=== PATIENT | female | born 1965 | race American Indian/Alaskan Native ===

== ENCOUNTER 2022-04-10 23:32 | Inpatient (IN) | payer MEDICAID ==
[~2022-04-10] VITALS: Ht 157.5 cm; Wt 40.3 kg
[2022-04-10] MEDS ORDERED: ROCURONIUM 10MG/ML 10ML VIAL IV ONE (23:42)
[2022-04-10] MEDS ORDERED: PROPOFOL 100 ML IV ONE (23:42)
[2022-04-10] MEDS ORDERED: ETOMIDATE (2MG/ML) 20ML VIAL IV ONE (23:42)
[2022-04-10] MEDS ORDERED: MIDAZOLAM HCL 5 MG/ML-1ML VIAL ONE (23:44)
[2022-04-11] VITALS (88 sets, daily range): BP systolic 85–124; BP diastolic 59–82
[2022-04-11] MEDS ORDERED: methylPREDNISolone SOD SUCC 125 MG/2 ML VL IV ONE
[2022-04-11 00:06] LABS: Basophils # (auto) 0.3 10 ^3/uL (0-0.2); Basophils % (auto) 2.8 % (0.0-2.0); Eosinophils # (auto) 0.6 10 ^3/uL (0-0.8); Hematocrit 31.9 % (36.0-46.0); Lymphocytes # (auto) 3.2 10 ^3/uL (0.4-5.4); Lymphocytes % (auto) 30.3 % (10.0-50.0); Mean Corpuscular Hemoglobin 31.4 pg (28.0-32.0); Mean Corpuscular Hgb Conc. 31.4 g/dL (32.0-36.0); Mean Corpuscular Volume 99.8 fL (80.0-100.0); Monocytes # (auto) 0.3 10 ^3/uL (0-1.3); Monocytes % (auto) 2.7 % (0.0-12.0); Neutrophils # (auto) 6.1 10 ^3/uL (1.6-8.6); Neutrophils % (auto) 58.2 % (37.0-80.0); Red Cell Distribution Width 14.1 % (11.8-14.3); White Blood Cell 10.4 10^3/uL (4.4-10.8)
[2022-04-11 00:20] LABS: Albumin 2.5 g/dL (3.4-5.0); BUN/Creatinine Ratio 8.9; Calcium 7.9 mg/dL (8.5-10.1); Potassium 4.5 mmol/L (3.5-5.1)
[2022-04-11 00:23] LABS: Bilirubin, Total 0.3 mg/dL (0.2-1.0); Total Protein 5.8 g/dL (6.4-8.2)
[2022-04-11 00:25] LABS: Lactic Acid w/Reflex 8.8 mmol/L (0.4-2.0)
[2022-04-11] MEDS ORDERED: SODIUM CHLORIDE 0.9% 1,000 ML IV ONE (00:45)
[2022-04-11] MEDS ORDERED: VANCOMYCIN 1GM/250ML 250 ML IV ONE (00:45)
[2022-04-11] MEDS ORDERED: PIPERACILLIN-TAZOB 3.375GM 100 ML IV ONE (00:45)
[2022-04-11] MEDS ORDERED: ROCURONIUM 10MG/ML 10ML VIAL IV ONE (01:00)
[2022-04-11] MEDS ORDERED: ETOMIDATE (2MG/ML) 20ML VIAL IV ONE (01:00)
[2022-04-11] MEDS: MAGNESIUM SULFATE 1GM/100ML 100 ML IV SCH ×2 (01:01→02:02)
[2022-04-11] MEDS: PROPOFOL 100 ML IV SCH ×2 (01:38→13:47)
[2022-04-11 03:21] LABS: Urine Bacteria FEW /hpf (None Seen); Urine Blood Negative /uL (Negative); Urine Hyaline Cast FEW /lpf (0 - 2); Urine Mucus FEW (None Seen); Urine Specific Gravity 1.012 (1.001-1.035); Urine WBC 2 /hpf (0 - 5)
[2022-04-11] MEDS ORDERED: NITROGLYCERIN 0.4 MG SL TAB SL PRN (04:15)
[2022-04-11] MEDS ORDERED: MORPHINE SULFATE INJ 2 MG/ml SYRG IV PRN (04:15)
[2022-04-11] MEDS ORDERED: ONDANSETRON HCL 4 MG/2 ML VIAL IV PRN (04:15)
[2022-04-11] MEDS ORDERED: IOHEXOL 350 MG/ML 100ML IJ ONE (04:23)
[2022-04-11] MEDS: methylPREDNISolone SOD SUCC 125 MG/2 ML VL IV SCH ×3 (06:15→21:45)
[2022-04-11] MEDS: SODIUM CHLORIDE 0.9% 1,000 ML IV SCH (06:16)
[2022-04-11] MEDS: ENOXAPARIN SOD 40 MG/0.4 ML SYRINGE SC SCH ×2 (06:16→21:45)
[2022-04-11] MEDS ORDERED: ASPirin 81 mg TAB NG ONE (06:45)
[2022-04-11 08:08] LABS: Basophils # (auto) 0 10 ^3/uL (0-0.2); Basophils % (auto) 0.2 % (0.0-2.0); Eosinophils # (auto) 0 10 ^3/uL (0-0.8); Hematocrit 30.2 % (36.0-46.0); Hemoglobin 10.3 g/dL (12.2-16.2); Lymphocytes # (auto) 0.4 10 ^3/uL (0.4-5.4); Lymphocytes % (auto) 3.8 % (10.0-50.0); Mean Corpuscular Hemoglobin 32.5 pg (28.0-32.0); Mean Corpuscular Hgb Conc. 34.2 g/dL (32.0-36.0); Mean Corpuscular Volume 95.1 fL (80.0-100.0); Monocytes # (auto) 0.1 10 ^3/uL (0-1.3); Neutrophils # (auto) 8.9 10 ^3/uL (1.6-8.6); Red Blood Cells 3.18 10^6/uL (4.0-5.20); Red Cell Distribution Width 13.9 % (11.8-14.3); White Blood Cell 9.3 10^3/uL (4.4-10.8)
[2022-04-11] MEDS: PANTOPRAZOLE 40 MG/10 ML VIAL INJ IV SCH (08:15)
[2022-04-11 09:00] LABS: Potassium 4.4 mmol/L (3.5-5.1)
[2022-04-11 09:17] LABS: Albumin 2.4 g/dL (3.4-5.0); BUN/Creatinine Ratio 13.5; Bilirubin, Total 1.9 mg/dL (0.2-1.0); Calcium 7.5 mg/dL (8.5-10.1); Magnesium 3.2 mg/dL (1.6-2.6)
[2022-04-11] MEDS: NOREPINEPHRINE 8 MG/250ML KIT 250 ML IV SCH (09:30)
[2022-04-11] MEDS ORDERED: levoFLOXacin 500MG 100 ML IV ONE (10:00)
[2022-04-11] MEDS ORDERED: Jevity 1.2 Cal/Fiber 1 Liter GT SCH (15:30)
[2022-04-11] MEDS: ALBUTEROL SULF 2.5 MG/0.5ML(0.5%) NEB SOLN NEB SCH ×2 (17:55→22:05)
[2022-04-12] VITALS (84 sets, daily range): BP systolic 68–130; BP diastolic 43–90
[2022-04-12] MEDS: SODIUM CHLORIDE 0.9% 1,000 ML IV SCH ×3 (00:15→21:35)
[2022-04-12] MEDS: PROPOFOL 100 ML IV SCH (01:00)
[2022-04-12] MEDS: ALBUTEROL SULF 2.5 MG/0.5ML(0.5%) NEB SOLN NEB SCH ×4 (02:02→14:28)
[2022-04-12 04:08] LABS: Basophils # (auto) 0 10 ^3/uL (0-0.2); Basophils % (auto) 0.2 % (0.0-2.0); Eosinophils # (auto) 0 10 ^3/uL (0-0.8); Hematocrit 27.2 % (36.0-46.0); Hemoglobin 9.6 g/dL (12.2-16.2); Lymphocytes # (auto) 0.4 10 ^3/uL (0.4-5.4); Lymphocytes % (auto) 6.5 % (10.0-50.0); Mean Corpuscular Hemoglobin 33.7 pg (28.0-32.0); Mean Corpuscular Hgb Conc. 35.4 g/dL (32.0-36.0); Mean Corpuscular Volume 95.2 fL (80.0-100.0); Monocytes # (auto) 0.2 10 ^3/uL (0-1.3); Monocytes % (auto) 3.2 % (0.0-12.0); Neutrophils # (auto) 6.1 10 ^3/uL (1.6-8.6); Neutrophils % (auto) 90.1 % (37.0-80.0); Red Blood Cells 2.86 10^6/uL (4.0-5.20); Red Cell Distribution Width 14.4 % (11.8-14.3); White Blood Cell 6.8 10^3/uL (4.4-10.8)
[2022-04-12 04:27] LABS: Albumin 2.1 g/dL (3.4-5.0); Calcium 7.6 mg/dL (8.5-10.1); Potassium 3.8 mmol/L (3.5-5.1)
[2022-04-12 04:31] LABS: BUN/Creatinine Ratio 17.6
[2022-04-12 04:33] LABS: Bilirubin, Total 0.4 mg/dL (0.2-1.0); Total Protein 5.3 g/dL (6.4-8.2)
[2022-04-12] MEDS: methylPREDNISolone SOD SUCC 125 MG/2 ML VL IV SCH ×3 (05:41→21:34)
[2022-04-12] MEDS: PANTOPRAZOLE 40 MG/10 ML VIAL INJ IV SCH (09:29)
[2022-04-12] MEDS: ENOXAPARIN SOD 40 MG/0.4 ML SYRINGE SC SCH ×2 (09:29→21:34)
[2022-04-12] MEDS: NOREPINEPHRINE 8 MG/250ML KIT 250 ML IV SCH ×2 (09:29→18:30)
[2022-04-12] MEDS ORDERED: levoFLOXacin 250MG 50 ML IV SCH (10:00)
[2022-04-12] MEDS ORDERED: TRAZ100T3 PO (10:39)
[2022-04-12] MEDS ORDERED: PANT40TA2 PO (10:39)
[2022-04-12] MEDS ORDERED: ALBU2TAB4 PO (10:39)
[2022-04-12] MEDS ORDERED: CAR3125T PO (10:39)
[2022-04-12] MEDS: ASPirin 81 mg TAB PO SCH (14:22)
[2022-04-12] MEDS ORDERED: CARVEDILOL 3.125 MG TAB PO ONE (15:00)
[2022-04-12] MEDS: ALPRAZolam 0.25 MG TAB PO ONE (15:07)
[2022-04-12] MEDS ORDERED: ALPRAZolam 0.25 MG TAB PO ONE (15:15)
[2022-04-12] MEDS ORDERED: IPRATROPIUM BROM 0.5 MG/2.5ML INH SOL ONE (17:31)
[2022-04-12] MEDS ORDERED: ALBUTEROL SULF 2.5 MG/0.5ML(0.5%) NEB SOLN ONE (17:31)
[2022-04-12] MEDS ORDERED: ROCURONIUM 10MG/ML 10ML VIAL IV ONE (17:34)
[2022-04-12] MEDS ORDERED: MIDAZOLAM HCL 5 MG/ML-1ML VIAL ONE (17:34)
[2022-04-12] MEDS ORDERED: ETOMIDATE (2MG/ML) 20ML VIAL IV ONE (17:35)
[2022-04-12] MEDS ORDERED: SUCCINYLCHOLINE CHLORIDE 20 MG/ML 10ML VIAL IV ONE ×2 (17:35→17:45)
[2022-04-12] MEDS ORDERED: DexAMETHasone SOD PHOS 4 MG/1ML SDV INJ ONE (17:40)
[2022-04-12] MEDS ORDERED: MIDAZOLAM HCL 5 MG/ML-1ML VIAL IV ONE (17:45)
[2022-04-12] MEDS ORDERED: DexAMETHasone SOD PHOS 10MG/1ML VIAL INJ IV ONE (18:00)
[2022-04-12] MEDS: LEVALBUTEROL HCL 1.25 MG/3 ML NEB NEB SCH ×2 (18:00→22:59)
[2022-04-12] MEDS ORDERED: IPRATROPIUM BROM 0.5 MG/2.5ML INH SOL NEB ONE (18:15)
[2022-04-12] MEDS ORDERED: ALBUTEROL SULF 2.5 MG/0.5ML(0.5%) NEB SOLN NEB ONE (18:15)
[2022-04-12] MEDS: CARVEDILOL 3.125 MG TAB PO SCH (21:35)
[2022-04-13] VITALS (105 sets, daily range): BP systolic 89–120; BP diastolic 58–82
[2022-04-13] MEDS: LEVALBUTEROL HCL 1.25 MG/3 ML NEB NEB SCH ×6 (02:00→22:41)
[2022-04-13] MEDS: PROPOFOL 100 ML IV SCH ×2 (03:00→13:22)
[2022-04-13 04:19] LABS: Basophils # (auto) 0 10 ^3/uL (0-0.2); Basophils % (auto) 0.2 % (0.0-2.0); Eosinophils # (auto) 0 10 ^3/uL (0-0.8); Hematocrit 26.9 % (36.0-46.0); Hemoglobin 9.4 g/dL (12.2-16.2); Lymphocytes # (auto) 0.7 10 ^3/uL (0.4-5.4); Lymphocytes % (auto) 4.6 % (10.0-50.0); Mean Corpuscular Hemoglobin 33.2 pg (28.0-32.0); Mean Corpuscular Hgb Conc. 34.9 g/dL (32.0-36.0); Mean Corpuscular Volume 95.2 fL (80.0-100.0); Monocytes # (auto) 0.7 10 ^3/uL (0-1.3); Monocytes % (auto) 4.6 % (0.0-12.0); Neutrophils % (auto) 90.6 % (37.0-80.0); Red Blood Cells 2.83 10^6/uL (4.0-5.20); Red Cell Distribution Width 14.5 % (11.8-14.3); White Blood Cell 14.4 10^3/uL (4.4-10.8)
[2022-04-13 04:34] LABS: Albumin 2.3 g/dL (3.4-5.0); Calcium 7.7 mg/dL (8.5-10.1); Potassium 3.9 mmol/L (3.5-5.1)
[2022-04-13 04:36] LABS: BUN/Creatinine Ratio 17.6
[2022-04-13 04:38] LABS: Bilirubin, Total 0.3 mg/dL (0.2-1.0); Total Protein 5.3 g/dL (6.4-8.2)
[2022-04-13] MEDS: methylPREDNISolone SOD SUCC 125 MG/2 ML VL IV SCH ×3 (05:51→23:56)
[2022-04-13] MEDS: SODIUM CHLORIDE 0.9% 1,000 ML IV SCH ×2 (09:35→16:18)
[2022-04-13] MEDS: levoFLOXacin 500MG 100 ML IV SCH (09:40)
[2022-04-13] MEDS: ENOXAPARIN SOD 40 MG/0.4 ML SYRINGE SC SCH ×2 (09:41→22:13)
[2022-04-13] MEDS: CARVEDILOL 3.125 MG TAB PO SCH ×2 (09:41→22:13)
[2022-04-13] MEDS: PANTOPRAZOLE 40 MG/10 ML VIAL INJ IV SCH (09:41)
[2022-04-13] MEDS: ASPirin 81 mg TAB PO SCH (09:41)
[2022-04-13] MEDS: DOCUSATE ORAL LIQUID 100 MG/10 ML UD NG SCH (22:12)
[2022-04-14] VITALS (107 sets, daily range): BP systolic 93–121; BP diastolic 59–82
[2022-04-14] MEDS: LEVALBUTEROL HCL 1.25 MG/3 ML NEB NEB SCH ×7 (02:17→22:11)
[2022-04-14] MEDS: PROPOFOL 100 ML IV SCH (03:39)
[2022-04-14 04:09] LABS: Basophils # (auto) 0 10 ^3/uL (0-0.2); Basophils % (auto) 0.1 % (0.0-2.0); Eosinophils # (auto) 0 10 ^3/uL (0-0.8); Hematocrit 24.4 % (36.0-46.0); Hemoglobin 8.5 g/dL (12.2-16.2); Lymphocytes # (auto) 0.5 10 ^3/uL (0.4-5.4); Lymphocytes % (auto) 16.3 % (10.0-50.0); Mean Corpuscular Hemoglobin 33.5 pg (28.0-32.0); Mean Corpuscular Hgb Conc. 34.6 g/dL (32.0-36.0); Mean Corpuscular Volume 96.8 fL (80.0-100.0); Monocytes # (auto) 0.2 10 ^3/uL (0-1.3); Monocytes % (auto) 6.4 % (0.0-12.0); Neutrophils # (auto) 2.3 10 ^3/uL (1.6-8.6); Neutrophils % (auto) 77.2 % (37.0-80.0); Nucleated Red Blood Cells % 0.1 %; Red Blood Cells 2.52 10^6/uL (4.0-5.20); Red Cell Distribution Width 14.7 % (11.8-14.3)
[2022-04-14 04:19] LABS: Albumin 2.1 g/dL (3.4-5.0); BUN/Creatinine Ratio 25.8; Calcium 7.6 mg/dL (8.5-10.1)
[2022-04-14 04:22] LABS: Bilirubin, Total 0.2 mg/dL (0.2-1.0); Total Protein 4.8 g/dL (6.4-8.2)
[2022-04-14] MEDS: methylPREDNISolone SOD SUCC 125 MG/2 ML VL IV SCH ×3 (06:28→21:55)
[2022-04-14] MEDS: NOREPINEPHRINE 8 MG/250ML KIT 250 ML IV SCH (09:30)
[2022-04-14] MEDS: CARVEDILOL 3.125 MG TAB PO SCH ×2 (10:00→22:00)
[2022-04-14] MEDS: PANTOPRAZOLE 40 MG/10 ML VIAL INJ IV SCH (10:51)
[2022-04-14] MEDS: levoFLOXacin 500MG 100 ML IV SCH (10:51)
[2022-04-14] MEDS: ENOXAPARIN SOD 40 MG/0.4 ML SYRINGE SC SCH ×2 (10:52→22:00)
[2022-04-14] MEDS: ASPirin 81 mg TAB PO SCH (10:53)
[2022-04-14] MEDS: DOCUSATE ORAL LIQUID 100 MG/10 ML UD NG SCH ×2 (10:53→21:54)
[2022-04-14] MEDS: D5W/SOD CHL 0.45% 1,000 ML IV SCH (11:32)
[2022-04-14] MEDS: MORPHINE SULFATE INJ 2 MG/ml SYRG IV PRN (11:36)
[2022-04-14] MEDS ORDERED: FUROSEMIDE 40 MG/4 ML VIAL IV ONE (15:15)
[2022-04-14] MEDS ORDERED: FUROSEMIDE 40 MG/4 ML VIAL ONE (15:15)
[2022-04-14] MEDS ORDERED: LACTULOSE 20Gm/30ML SOLN PO PRN (17:45)
[2022-04-14] MEDS: SENNA 8.6 MG TAB PO SCH (21:53)
[2022-04-15] VITALS (100 sets, daily range): BP systolic 91–132; BP diastolic 55–93
[2022-04-15] MEDS: D5W/SOD CHL 0.45% 1,000 ML IV SCH ×2 (00:57→17:18)
[2022-04-15] MEDS: LEVALBUTEROL HCL 1.25 MG/3 ML NEB NEB SCH ×6 (02:03→22:20)
[2022-04-15 04:24] LABS: Basophils # (auto) 0 10 ^3/uL (0-0.2); Basophils % (auto) 0.4 % (0.0-2.0); Eosinophils # (auto) 0 10 ^3/uL (0-0.8); Hematocrit 26.1 % (36.0-46.0); Lymphocytes # (auto) 0.4 10 ^3/uL (0.4-5.4); Lymphocytes % (auto) 13.6 % (10.0-50.0); Mean Corpuscular Hemoglobin 32.8 pg (28.0-32.0); Mean Corpuscular Hgb Conc. 34.5 g/dL (32.0-36.0); Mean Corpuscular Volume 95.1 fL (80.0-100.0); Monocytes # (auto) 0.2 10 ^3/uL (0-1.3); Monocytes % (auto) 7.1 % (0.0-12.0); Neutrophils % (auto) 78.9 % (37.0-80.0); Nucleated Red Blood Cells % 0.2 %; Red Blood Cells 2.74 10^6/uL (4.0-5.20); Red Cell Distribution Width 14.4 % (11.8-14.3); White Blood Cell 2.6 10^3/uL (4.4-10.8)
[2022-04-15 04:42] LABS: BUN/Creatinine Ratio 25.4; Calcium 7.3 mg/dL (8.5-10.1); Potassium 3.2 mmol/L (3.5-5.1)
[2022-04-15] MEDS: POTASSIUM CHL 20MEQ/100ML 100 ML IV SCH ×2 (06:17→08:20)
[2022-04-15] MEDS: methylPREDNISolone SOD SUCC 125 MG/2 ML VL IV SCH ×3 (06:22→22:10)
[2022-04-15] MEDS: ASPirin 81 mg TAB PO SCH (09:58)
[2022-04-15] MEDS: levoFLOXacin 500MG 100 ML IV SCH (09:59)
[2022-04-15] MEDS: DOCUSATE ORAL LIQUID 100 MG/10 ML UD NG SCH ×2 (09:59→22:00)
[2022-04-15] MEDS: PANTOPRAZOLE 40 MG/10 ML VIAL INJ IV SCH (09:59)
[2022-04-15] MEDS: CARVEDILOL 3.125 MG TAB PO SCH ×2 (10:00→22:08)
[2022-04-15] MEDS: ENOXAPARIN SOD 40 MG/0.4 ML SYRINGE SC SCH ×2 (10:41→22:07)
[2022-04-15] MEDS: ACETAMINOPHEN 325 MG TAB PO PRN (18:38)
[2022-04-15] MEDS: SENNA 8.6 MG TAB PO SCH (22:00)
[2022-04-15] MEDS: LORazepam 2MG/ML-1ML VIAL IV PRN (23:21)
[2022-04-15] MEDS: NOREPINEPHRINE 8 MG/250ML KIT 250 ML IV SCH (23:52)
[2022-04-16] VITALS (78 sets, daily range): BP systolic 102–128; BP diastolic 71–87
[2022-04-16] MEDS: PROPOFOL 100 ML IV SCH (01:15)
[2022-04-16] MEDS: LEVALBUTEROL HCL 1.25 MG/3 ML NEB NEB SCH ×6 (02:15→22:45)
[2022-04-16 04:30] LABS: Basophils # (auto) 0 10 ^3/uL (0-0.2); Basophils % (auto) 0.1 % (0.0-2.0); Eosinophils # (auto) 0 10 ^3/uL (0-0.8); Hematocrit 29.7 % (36.0-46.0); Hemoglobin 10.3 g/dL (12.2-16.2); Lymphocytes # (auto) 0.4 10 ^3/uL (0.4-5.4); Lymphocytes % (auto) 6.3 % (10.0-50.0); Mean Corpuscular Hemoglobin 32.9 pg (28.0-32.0); Mean Corpuscular Hgb Conc. 34.7 g/dL (32.0-36.0); Mean Corpuscular Volume 94.6 fL (80.0-100.0); Monocytes # (auto) 0.2 10 ^3/uL (0-1.3); Monocytes % (auto) 3.5 % (0.0-12.0); Neutrophils # (auto) 5.8 10 ^3/uL (1.6-8.6); Neutrophils % (auto) 90.1 % (37.0-80.0); Nucleated Red Blood Cells % 0.1 %; Red Blood Cells 3.14 10^6/uL (4.0-5.20); Red Cell Distribution Width 14.1 % (11.8-14.3); White Blood Cell 6.5 10^3/uL (4.4-10.8)
[2022-04-16 04:50] LABS: Calcium 7.5 mg/dL (8.5-10.1); Potassium 3.7 mmol/L (3.5-5.1)
[2022-04-16 04:52] LABS: BUN/Creatinine Ratio 20.7
[2022-04-16] MEDS: D5W/SOD CHL 0.45% 1,000 ML IV SCH ×2 (05:43→20:00)
[2022-04-16] MEDS: methylPREDNISolone SOD SUCC 125 MG/2 ML VL IV SCH (05:44)
[2022-04-16] MEDS: PANTOPRAZOLE 40 MG/10 ML VIAL INJ IV SCH (09:46)
[2022-04-16] MEDS: ENOXAPARIN SOD 40 MG/0.4 ML SYRINGE SC SCH ×2 (09:46→22:09)
[2022-04-16] MEDS: DOCUSATE ORAL LIQUID 100 MG/10 ML UD NG SCH ×2 (09:47→21:58)
[2022-04-16] MEDS: levoFLOXacin 500MG 100 ML IV SCH (09:47)
[2022-04-16] MEDS: ASPirin 81 mg TAB PO SCH (09:47)
[2022-04-16] MEDS: CARVEDILOL 3.125 MG TAB PO SCH ×2 (09:47→22:08)
[2022-04-16] MEDS: methylPREDNISolone SOD SUCC 40 MG/ML VL IV SCH (21:56)
[2022-04-16] MEDS: SENNA 8.6 MG TAB PO SCH (22:09)
[2022-04-16] MEDS ORDERED: diphenhdrAMINE HCL 25 MG CAP PO ONE (22:15)
[2022-04-17] VITALS (14 sets, daily range): BP systolic 96–121; BP diastolic 66–81
[2022-04-17] MEDS: LEVALBUTEROL HCL 1.25 MG/3 ML NEB NEB SCH ×4 (02:00→22:40)
[2022-04-17 05:22] LABS: Basophils # (auto) 0 10 ^3/uL (0-0.2); Basophils % (auto) 0.4 % (0.0-2.0); Eosinophils # (auto) 0.1 10 ^3/uL (0-0.8); Hematocrit 32.2 % (36.0-46.0); Lymphocytes # (auto) 1.6 10 ^3/uL (0.4-5.4); Lymphocytes % (auto) 17.5 % (10.0-50.0); Mean Corpuscular Hemoglobin 32.7 pg (28.0-32.0); Mean Corpuscular Volume 96.2 fL (80.0-100.0); Monocytes # (auto) 0.7 10 ^3/uL (0-1.3); Monocytes % (auto) 8.2 % (0.0-12.0); Neutrophils # (auto) 6.6 10 ^3/uL (1.6-8.6); Neutrophils % (auto) 72.9 % (37.0-80.0); Nucleated Red Blood Cells % 0.1 %; Red Blood Cells 3.35 10^6/uL (4.0-5.20); Red Cell Distribution Width 14.4 % (11.8-14.3)
[2022-04-17 05:46] LABS: Calcium 7.2 mg/dL (8.5-10.1); Potassium 3.6 mmol/L (3.5-5.1)
[2022-04-17] MEDS: D5W/SOD CHL 0.45% 1,000 ML IV SCH ×2 (10:28→13:32)
[2022-04-17] MEDS: levoFLOXacin 500MG 100 ML IV SCH (10:58)
[2022-04-17] MEDS: PANTOPRAZOLE 40 MG/10 ML VIAL INJ IV SCH (10:58)
[2022-04-17] MEDS: ASPirin 81 mg TAB PO SCH (10:58)
[2022-04-17] MEDS: DOCUSATE SOD 100 MG CAP PO SCH ×2 (10:59→22:32)
[2022-04-17] MEDS: CARVEDILOL 3.125 MG TAB PO SCH ×2 (10:59→22:32)
[2022-04-17] MEDS: methylPREDNISolone SOD SUCC 40 MG/ML VL IV SCH ×2 (11:00→22:00)
[2022-04-17] MEDS: ENOXAPARIN SOD 40 MG/0.4 ML SYRINGE SC SCH ×2 (11:00→22:33)
[2022-04-17] MEDS: MORPHINE SULFATE INJ 2 MG/ml SYRG IV PRN (16:33)
[2022-04-17] MEDS: LORazepam 2MG/ML-1ML VIAL IV PRN (18:26)
[2022-04-17] MEDS: SENNA 8.6 MG TAB PO SCH (22:33)
[2022-04-18] MEDS: LEVALBUTEROL HCL 1.25 MG/3 ML NEB NEB SCH ×6 (02:33→22:10)
[2022-04-18] MEDS: MORPHINE SULFATE INJ 2 MG/ml SYRG IV PRN (04:49)
[2022-04-18 05:03] VITALS: BP 100/65
[2022-04-18 08:34] VITALS: BP 102/66
[2022-04-18] MEDS: CARVEDILOL 3.125 MG TAB PO SCH ×2 (10:00→21:42)
[2022-04-18] MEDS: methylPREDNISolone SOD SUCC 40 MG/ML VL IV SCH ×2 (10:00→21:39)
[2022-04-18] MEDS: PANTOPRAZOLE 40 MG/10 ML VIAL INJ IV SCH (10:58)
[2022-04-18] MEDS: DOCUSATE SOD 100 MG CAP PO SCH ×2 (10:58→21:40)
[2022-04-18] MEDS: ASPirin 81 mg TAB PO SCH (10:58)
[2022-04-18] MEDS: ENOXAPARIN SOD 40 MG/0.4 ML SYRINGE SC SCH ×2 (10:58→21:41)
[2022-04-18] MEDS: levoFLOXacin 500MG 100 ML IV SCH (11:31)
[2022-04-18] MEDS: D5W/SOD CHL 0.45% 1,000 ML IV SCH ×2 (11:55→21:25)
[2022-04-18 12:53] VITALS: BP 100/62
[2022-04-18 16:35] VITALS: BP 95/61
[2022-04-18] MEDS: SENNA 8.6 MG TAB PO SCH (21:40)
[2022-04-18] MEDS: ACETAMINOPHEN 325 MG TAB PO PRN (21:41)
[2022-04-18 22:00] VITALS: BP 98/61
[2022-04-19] MEDS: LEVALBUTEROL HCL 1.25 MG/3 ML NEB NEB SCH ×6 (02:18→18:51)
[2022-04-19] MEDS: MORPHINE SULFATE INJ 2 MG/ml SYRG IV PRN (03:14)
[2022-04-19 05:00] VITALS: BP 122/69
[2022-04-19] MEDS: methylPREDNISolone SOD SUCC 40 MG/ML VL IV SCH (07:37)
[2022-04-19 09:17] VITALS: BP 104/64
[2022-04-19] MEDS ORDERED: ARIP2TAB PO (09:50)
[2022-04-19] MEDS ORDERED: DULO20CA PO (09:50)
[2022-04-19] MEDS ORDERED: ASPI1CHW15 PO (09:50)
[2022-04-19] MEDS: DOCUSATE SOD 100 MG CAP PO SCH (10:00)
[2022-04-19] MEDS ORDERED: DULoxetine HCL 20 MG CAP PO SCH (10:00)
[2022-04-19] MEDS ORDERED: ABILIFY 5 MG PO SCH (10:00)
[2022-04-19] MEDS: PANTOPRAZOLE 40 MG/10 ML VIAL INJ IV SCH (10:30)
[2022-04-19] MEDS: ASPirin 81 mg TAB PO SCH (10:30)
[2022-04-19] MEDS: ENOXAPARIN SOD 40 MG/0.4 ML SYRINGE SC SCH (10:32)
[2022-04-19] MEDS: levoFLOXacin 500MG 100 ML IV SCH (10:32)
[2022-04-19] MEDS: CARVEDILOL 3.125 MG TAB PO SCH (10:32)
[2022-04-19] MEDS: D5W/SOD CHL 0.45% 1,000 ML IV SCH (10:33)
[2022-04-19 13:14] VITALS: BP 99/62
[2022-04-19 16:32] VITALS: BP 118/70
[2022-04-19 18:12] VITALS: BP 149/94
== END 2022-04-19 20:06 | disposition home health service (06) | DRG 133 ==
LOC: ER 23:32 → EDBD 23:32 → TELE 04-11 04:13 → ICU WEST 04-11 04:46 → TELE-EAST 04-17 09:25
PROVIDERS: ADMIT Hospitalist; ATTEND Internal Medicine
PROC: 5A1935Z Respiratory Ventilation, Less than 24 Consecutive Hours (ICD-10-PCS; 2022-04-11)
PROC: 0BH17EZ Insertion of Endotracheal Airway into Trachea, Via Natural or Artificial Opening (ICD-10-PCS; 2022-04-11)
PROC: 5A1945Z Respiratory Ventilation, 24-96 Consecutive Hours (ICD-10-PCS; principal; 2022-04-12)
PROC: 0BH17EZ Insertion of Endotracheal Airway into Trachea, Via Natural or Artificial Opening (ICD-10-PCS; 2022-04-12)
DX: J96.21 Acute and chronic respiratory failure with hypoxia (principal); E87.0 Hyperosmolality and hypernatremia; J44.1 Chronic obstructive pulmonary disease with (acute) exacerbation; R64 Cachexia; D63.8 Anemia in other chronic diseases classified elsewhere; E87.2 Acidosis; F51.04 Psychophysiologic insomnia; I10 Essential (primary) hypertension; J98.11 Atelectasis; E87.6 Hypokalemia; F31.9 Bipolar disorder, unspecified; Z20.822 Contact with and (suspected) exposure to COVID-19; Z68.1 Body mass index [BMI] 19.9 or less, adult; Z87.891 Personal history of nicotine dependence
CPT/HCPCS: 31500; 36415; 36600; 70450; 71045; 71275; 80048; 80053; 81001; 82140; 82805; 82962; 83605; 83735; 83880; 84132; 84443; 84484; 85025; 85379; 87040; 87070; 87081; 87205; 93005; 93306; 94003; 94640; 96365; 96366; 96368; 96375; 97163; 99152; 99153; 99291; C9113; G0378; J0330; J1100; J1956; J2250; J2543; J2704; J3480; J7060